=== PATIENT | male | born 1975 | race Caucasian/White ===

== ENCOUNTER 2016-09-08 14:32 | Emergency (ER) | payer MEDICAID, MEDICARE ==
[~2016-09-08] VITALS: Ht 185.4 cm; Wt 65.6 kg
[~2016-09-08 14:32] MED LIST: CLIN-89 PO; HYDR-4246 PO; IBUP-1724 PO; NO ROUTINE MEDS
--- OUTSIDE RECORDS SUMMARY | 2016-09-08 14:37 | XMS REPORT | Continuity of Care Document ---
Author Author [facility] Organization [facility] Address Unknown Phone Unavailable Support Name Relationship Address Phone GENOVEVA RUVALCABA MD Caregiver [address] [place] [phone] SARAH LONGORIA MD Caregiver [address] [place] [address] ZAK VARMA Next Of Kin [address] [place] [address] Insurance Providers Payer Name Policy Number Subscriber Name Relationship Medicare Eddie De Los Santos 18 Self Problems Medical Problems Problem Onset Date Status Bronchitis Unknown Active Pain due to dental caries Unknown Active Medications Medication Dose Route Sig Days/Qty Instructions Order Date Discontinued Date Status Albuterol 17 Gm IH NEEDED 03/08/08 01/29/11 Discontinued Tramadol Hcl 50 Mg PO DAILY 10/18/09 06/03/10 Discontinued [Testosterone Cream] 04/11/08 05/04/08 Discontinued [Propranolol] 04/11/08 10/15/09 Discontinued Cyclobenzaprine Hcl 10 Mg PO NEEDED 10/18/09 06/03/10 Discontinued Sumatriptan Succinate 50 Mg PO NEEDED 10/18/09 06/03/10 Discontinued Propranolol Hcl 80 Mg PO TWICE A DAY 06/03/10 01/29/11 Discontinued Erythromycin Base DAILY 06/03/10 08/08/10 Discontinued Tramadol Hcl 25 Mg PO DAILY 02/26/11 06/10/11 Discontinued [Napacan] PO DAILY 05/17/11 06/10/11 Discontinued Albuterol 17 Gm IH NEEDED 05/17/11 06/10/11 Discontinued Amitriptyline Hcl 25 Mg PO BEDTIME 06/10/11 10/03/11 Discontinued Indomethacin 25 Mg PO THREE TIMES A DAY 06/10/11 08/06/11 Discontinued Testosterone 1 Patch TD DAILY 08/06/11 12/02/11 Discontinued Butalb/Acetaminophen/Caffeine 1 Tab PO NEEDED 06/05/12 06/23/13 Discontinued Tramadol Hcl 50 Mg PO TWICE A DAY 10/20/12 Active Albuterol Sulfate IH NEEDED 01/11/14 Active Hydrocodone/Acetaminophen 1-2 Tab PO Every 6 Hours 30 Qty 01/11/14 Active Clindamycin HCl 1 Cap PO FOUR TIMES DAILY 10 Days TAKE WITH A FULL GLASS OF WATER TO AVOID ESOPHAGEAL 01/11/14 Active Social History Social History Problem Response Recorded Date/Time Smoking Status Current every day smoker 01/11/2014 4:27am Chewing Tobacco Status No 04/08/2013 1:37am Hx Substance Use No 01/11/2014 4:27am Hx Alcohol Use Y OCCAS 01/11/2014 4:27am Query Response Start Date Stop Date Smoking Status Current every day smoker Hospital Discharge Instructions No hospital discharge instructions. Plan of Care No plan of care. Functional Status Query Response Date Recorded Physical Hygiene Self January 11, 2014 4:27am Disabilities None January 11, 2014 4:27am Devices Used None January 11, 2014 4:27am Dressing Self January 11, 2014 4:27am Ambulation Self January 11, 2014 4:27am Diet Self January 11, 2014 4:27am Mental Status Alert Oriented January 11, 2014 4:36am Disabilities None January 11, 2014 4:27am Devices Used None January 11, 2014 4:27am Physical Hygiene Self January 11, 2014 4:27am Dressing Self January 11, 2014 4:27am Ambulation Self January 11, 2014 4:27am Diet Self January 11, 2014 4:27am Allergies, Adverse Reactions, Alerts Allergen Type Severity Reaction Status Last Updated Penicillin Allergy Mild HIVES Active 01/11/14 TESTOSTERONE CREAM Allergy Mild Active 05/16/08 Immunizations Name Given Type Hx Influenza Vaccination No Historical Hx Pneumococcal Vaccination No Historical Hx Tetanus, Diptheria, Pertussis Y 2010 Historical Hx Influenza Vaccination No Historical Hx Tetanus, Diptheria, Pertussis Y 2010 Historical Vital Signs Acute Vital Signs Vital Response Date/Time Temperature (Fahrenheit) 97.8 deg F (96.8 - 99.1) Temperature (Calculated Celsius) 36.85404 degrees C (36.0 - 37.3) Pulse Rate (adult) 69 bpm (60 - 100) Respiratory Rate 18 breaths/min (10 - 20) O2 Sat by Pulse Oximetry 96 % (90 - 100) Blood Pressure 114/78 mm Hg Blood Pressure 114/78 mm Hg Height (Feet) 6 feet Height (Inches) 1.00 inches Weight (Kilograms) 61.1 kg Body Mass Index (BMI) 17.0 Results Test Source Date Result Interp. Ref. Range Comments Activated Partial Thromboplast Time October 20, 2012 3:00am 32.6 SEC N 24- 36 Ordering r/o VTE Yes Alanine Aminotransferase (ALT/SGPT) October 20, 2012 3:00am 31 U/L N 21-72 Albumin October 20, 2012 3:00am 4.1 G/DL N 3.5-5.0 Albumin/Globulin Ratio October 20, 2012 3:00am 1.6 RATIO N 1.1-2.2 Alkaline Phosphatase October 20, 2012 3:00am 65 U/L N 38-126 Anion Gap October 20, 2012 3:00am 12 MEQ/L N 5-15 Aspartate Amino Transf (AST/SGOT) October 20, 2012 3:00am 34 U/L N 17-59 B-Type Natriuretic Peptide August 08, 2010 7:10pm < 15 PG/ML L 15-100 BUN/Creatinine Ratio October 20, 2012 3:00am 13 RATIO N 6-26 Band Neutrophils # September 16, 2008 9:15pm 0.3 T/MM3 - Band Neutrophils % September 16, 2008 9:15pm 5.0 % N 0-6 Basophils # (Auto) October 20, 2012 3:00am 0.0 T/MM3 N 0-0.2 Ordering r/o VTE Yes Basophils (%) (Auto) October 20, 2012 3:00am 0.5 % N 0-2 Ordering r/o VTE Yes Blood Urea Nitrogen October 20, 2012 3:00am 16.0 MG/DL N 9-20 Calcium Level October 20, 2012 3:00am 8.8 MG/DL N 8.4-10.2 Calculated Osmolality October 20, 2012 3:00am 272 MOSM/KG N 261-280 Carbon Dioxide Level October 20, 2012 3:00am 25 MEQ/L N 22-30 Chloride Level October 20, 2012 3:00am 104 MEQ/L N 98-107 Conjugated Bilirubin January 14, 2012 4:32pm 0.00 MG/DL N 0.00-0.30 Creatinine October 20, 2012 3:00am 1.2 MG/DL N 0.8-1.5 D-Dimer October 20, 2012 3:00am < 150 NG/ML 0-230 <224 NG/ML= PRESUMPTIVE NEGATIVE FOR PE OR DVT>224 NG/ML=ADDITIONAL EVALUATION FOR PE OR DVT RECOMMENDED Differential Total Cells Counted May 16, 2008 3:15pm 100 % - Eosinophils # (Auto) October 20, 2012 3:00am 0.1 T/MM3 N 0-0.5 Ordering r/ o VTE Yes Eosinophils # (Manual) May 16, 2008 3:15pm 0.1 T/MM3 N 0-0.5 Eosinophils % (Manual) May 16, 2008 3:15pm 2.0 % N 0-4 Eosinophils (%) (Auto) October 20, 2012 3:00am 0.8 % N 0-4 Ordering r/o VTE Yes Globulin October 20, 2012 3:00am 2.5 G/DL N 2.4-3.6 Glucose Level October 20, 2012 3:00am 95 MG/DL N 75-110 Group A Streptococcus Screen February 26, 2011 9:30am Negative - Strep culture confirmation to follow Hematocrit October 20, 2012 3:00am 39.6 % L 41-53 Ordering r/o VTE Yes Hemoglobin October 20, 2012 3:00am 14.0 GM/DL N 13.5-17.5 Ordering r/o VTE Yes Influenza Type A Antigen February 02, 2012 11:20pm Negative - Negative for Flu A protein antigen. Assay sensitivity isbetween 65-83%. A negative result does not exclude influenza virus infection. "Influenza FA" may be ordered if clinical presentation warrants confirmatory testing. Influenza Type B Antigen February 02, 2012 11:20pm Negative - Negative for Flu B protein antigen. Assay sensitivity isbetween 65-83%. A negative result does not exclude influenza virus infection. "Influenza FA" may be ordered if clinical presentation warrants confirmatory testing. Lymphocytes # (Auto) October 20, 2012 3:00am 2.0 T/MM3 N 1-4.8 Ordering r/ o VTE Yes Lymphocytes # (Manual) September 16, 2008 9:15pm 2.4 T/MM3 N 1-4.8 Lymphocytes % (Manual) September 16, 2008 9:15pm 41.0 % N 23-45 Lymphocytes (%) (Auto) October 20, 2012 3:00am 32.6 % N 23-45 Ordering r/ o VTE Yes Mean Corpuscular Hemoglobin October 20, 2012 3:00am 28.5 UUG N 26-34 Ordering r/o VTE Yes Mean Corpuscular Hemoglobin Concent October 20, 2012 3:00am 35.4 GM/DL N 31 -37 Ordering r/o VTE Yes Mean Corpuscular Volume October 20, 2012 3:00am 80.7 UM3 N 80-100 Ordering r/o VTE Yes Mean Platelet Volume October 20, 2012 3:00am 10.3 UM3 N 9.4-12.4 Ordering r/o VTE Yes Monocytes # (Auto) October 20, 2012 3:00am 0.5 T/MM3 N 0-0.8 Ordering r/o VTE Yes Monocytes # (Manual) September 16, 2008 9:15pm 0.2 T/MM3 N 0-0.8 Monocytes % (Manual) September 16, 2008 9:15pm 4.0 % N 0-9.0 Monocytes (%) (Auto) October 20, 2012 3:00am 7.7 % N 0-9.0 Ordering r/o VTE Yes Neutrophils # (Auto) October 20, 2012 3:00am 3.5 T/MM3 N 1.8-7.7 Ordering r/o VTE Yes Neutrophils # (Manual) September 16, 2008 9:15pm 2.7 T/MM3 N 1.8-7.7 Neutrophils % (Manual) September 16, 2008 9:15pm 46.0 % N 33-66 Neutrophils (%) (Auto) October 20, 2012 3:00am 58.4 % N 33-66 Ordering r/ o VTE Yes Platelet Count October 20, 2012 3:00am 133 T/MM3 N 130-400 Ordering r/o VTE Yes Potassium Level October 20, 2012 3:00am 3.7 MEQ/L N 3.6-5 Prothromb Time International Ratio October 20, 2012 3:00am 1.02 N 0.86- 1.10 THERAPUTIC RANGE=2.00-3.00 FOR ANTI-THROMBOSIS THERAPUTIC RANGE=2.50- 3.50 FOR IMPLANTED VALVE RDW Standard Deviation October 20, 2012 3:00am 38.3 FL N 36.9-50.2 Ordering r/o VTE Yes Reactive Lymphocytes September 16, 2008 9:15pm 4.0 % H 0-0 Red Blood Count October 20, 2012 3:00am 4.91 M/MM3 N 4.50-5.90 Ordering r/ o VTE Yes Sodium Level October 20, 2012 3:00am 141 MEQ/L N 134-144 Total Bilirubin October 20, 2012 3:00am 0.50 MG/DL N 0.20-1.30 Total Protein October 20, 2012 3:00am 6.6 G/DL N 6.3-8.2 Troponin I October 20, 2012 3:00am < 0.012 ng/ml 0-0.12 Unconjugated Bilirubin January 14, 2012 4:32pm 0.00 MG/DL N 0.00-1.10 Urine Bacteria May 16, 2008 3:07pm Trace - Has specimen been collected/obtained? Y Urine Bilirubin May 16, 2008 3:07pm Negative - Has specimen been collected/obtained? Y Urine Blood May 16, 2008 3:07pm Negative - Has specimen been collected/obtained? Y Urine Collection Type May 16, 2008 3:07pm Voided - Has specimen been collected/obtained? Y Urine Color May 16, 2008 3:07pm Yellow - Has specimen been collected/obtained? Y Urine Culture Indicated May 16, 2008 3:07pm Cult not set up - Has specimen been collected/obtained? Y Urine Glucose (UA) May 16, 2008 3:07pm Negative - Has specimen been collected/obtained? Y Urine Ketones May 16, 2008 3:07pm Negative - Has specimen been collected/obtained? Y Urine Leukocyte Esterase May 16, 2008 3:07pm Trace H - Has specimen been collected/obtained? Y Urine Nitrite May 16, 2008 3:07pm Negative - Has specimen been collected/obtained? Y Urine Protein May 16, 2008 3:07pm Negative - Has specimen been collected/obtained? Y Urine RBC May 16, 2008 3:07pm 0-1 /HPF - Has specimen been collected/obtained? Y Urine Specific [place] May 16, 2008 3:07pm 1.020 - Has specimen been collected/obtained? Y Urine Squamous Epithelial Cells May 16, 2008 3:07pm Few - Has specimen been collected/obtained? Y Urine Turbidity May 16, 2008 3:07pm Clear - Has specimen been collected/obtained? Y Urine Urobilinogen May 16, 2008 3:07pm Normal EU/DL - Has specimen been collected/obtained? Y Urine WBC May 16, 2008 3:07pm 1-3 /HPF - Has specimen been collected/obtained? Y Urine pH May 16, 2008 3:07pm 6.0 - Has specimen been collected/ obtained? Y White Blood Count October 20, 2012 3:00am 6.0 T/MM3 N 4.5-11.0 Ordering r/ o VTE Yes EKG January 13, 2009 8:22pm Complete - Atypical/Reactive Lymphocytes September 16, 2008 9:15pm 0.2 T/MM3 H 0-0 Glomerular Filtration Rate Calc October 20, 2012 3:00am 69 - Immature Granulocyte # (Auto) October 20, 2012 3:00am 0.00 T/MM3 N 0.00- 0.03 Ordering r/o VTE Yes Immature Granulocyte % (Auto) October 20, 2012 3:00am 0.0 % N 0.0-0.5 Ordering r/o VTE Yes WE-Cyj-N-Type Natriuretic Peptide October 20, 2012 3:00am 108 PG/ML N 0- 175 Rule in cut points: <50 years old=450; 50-75 years old=900; >75 years old=1800; When utilizing ProBNP rule-in cut points, adjustment for impaired renal function is typically not required. Group A Streptococcus Culture Throat February 26, 2011 10:25am Procedures No known history of procedures. Encounters Encounter Location Date/Time Departed Emergency Room [facility] 01/11/14 3:57am Recent Diagnosis
--- OUTSIDE RECORDS SUMMARY | 2016-09-08 14:37 | XMS REPORT | Continuity of Care Document ---
Author Author [facility] Organization [facility] Address Unknown Phone Unavailable Support Name Relationship Address Phone HENRY BLACK MD Caregiver [address] [place] [phone] GENOVEVA RUVALCABA MD Caregiver [address] [place], [place] [phone] ZAK VARMA Next Of Kin [address] [place] [id number] Insurance Providers Payer Name Policy Number Subscriber Name Relationship Medicare [id number] Eddie De Los Santos 18 Self Problems Medical Problems Problem Onset Date Status Bronchitis Unknown Active Pain due to dental caries Unknown Active Acute bronchitis Unknown Active Acute bronchitis Unknown Active Medications Medication Dose Route Sig [...] 12/02/11 Discontinued Butalb/Acetaminophen/Caffeine 1 Tab PO NEEDED 10/03/11 10/20/12 Discontinued Tramadol Hcl 50 Mg PO TWICE A DAY 10/20/12 Active Albuterol Sulfate IH NEEDED 01/11/14 Active Azithromycin 1 Tab PO DAILY 6 Qty TAKE TWO ON DAY ONE, 01/22/14 Active Prednisone 10 Mg PO DAILY 24 Qty 01/22/14 Active Social History Social History Problem Response Recorded Date/Time Smoking Status Current every day smoker 01/22/2014 4:02am When did patient START smoking? AGE 18 01/22/2014 4:02am Chewing Tobacco Status No 04/08/2013 1:37am Hx Substance Use No 01/22/2014 4:02am Hx Alcohol Use Y OCCAS 01/22/2014 4:02am Query Response Start Date Stop Date Smoking Status Current every day smoker Hospital Discharge Instructions No hospital discharge instructions. Plan of Care No plan of care. Functional Status Query Response Date Recorded Physical Hygiene Self January 22, 2014 4:02am Disabilities Hearing Visual January 22, 2014 4:02am Devices Used Glasses None January 22, 2014 4:02am Dressing Self January 22, 2014 4:02am Ambulation Self January 22, 2014 4:02am Diet Self January 22, 2014 4:02am Mental Status Alert Oriented January 22, 2014 5:10am Disabilities Hearing Visual January 22, 2014 4:02am Devices Used Glasses None January 22, 2014 4:02am Physical Hygiene Self January 22, 2014 4:02am Dressing Self January 22, 2014 4:02am Ambulation Self January 22, 2014 4:02am Diet Self January 22, 2014 4:02am Allergies, Adverse Reactions, Alerts Allergen Type Severity Reaction Status Last Updated Penicillin Allergy Mild HIVES Active 01/22/14 TESTOSTERONE CREAM Allergy Mild Active 05/16/08 Immunizations Name Given Type Hx Influenza Vaccination No Historical Hx Pneumococcal Vaccination No Historical Hx Tetanus, Diptheria, Pertussis Y 2010 Historical Hx Influenza Vaccination No Historical Hx Tetanus, Diptheria, Pertussis Y 2010 Historical Vital Signs Acute Vital Signs Vital Response Date/Time Temperature (Fahrenheit) 98.0 deg F (96.8 - 99.1) Temperature (Calculated Celsius) 36.94070 degrees C (36.0 - 37.3) Pulse Rate (adult) 102 bpm (60 - 100) Respiratory Rate 20 breaths/min (10 - 20) O2 Sat by Pulse Oximetry 94 % (90 - 100) Blood Pressure 104/58 mm Hg Height 6 ft 1 in Weight 134 lb Body Mass Index 17.0 kg/m^2 Results Test Source Date Result Interp. Ref. [...] r/o VTE Yes Influenza Type A Antigen January 22, 2014 3:55am Negative - Negative for Flu A protein antigen. Assay sensitivity is90%. Influenza Type B Antigen January 22, 2014 3:55am Negative - Negative for Flu B protein antigen. Assay sensitivity is90%. Lymphocytes # (Auto) October 20, 2012 3:00am [...] Has specimen been collected/obtained? Y Urine Specific [place] May 16, 2008 3:07pm 1.020 - Has [...] % N 0.0-0.5 Ordering r/o VTE Yes FG-Ovt-G-Type Natriuretic Peptide October 20, 2012 3:00am 108 PG/ML N 0- 175 Rule in cut points: <50 years old=450; 50-75 years old=900; >75 years old=1800; When utilizing ProBNP rule-in cut points, adjustment for impaired renal function is typically not required. Group A Streptococcus Culture Throat February 26, 2011 10:25am Procedures No known history of procedures. Encounters Encounter Location Date/Time Departed Emergency Room [facility] 01/22/14 3:11am Departed Emergency Room [facility] 01/11/14 3:57am Recent Diagnosis
--- OUTSIDE RECORDS SUMMARY | 2016-09-08 14:38 | XMS REPORT | Continuity of Care Document ---
Author Author [facility] Organization [facility] Address Unknown Phone Unavailable Allergies Active Description Code Type Severity Reaction Onset Reported/Identified Relationship to Patient Clinical Status Yes penicillin NKMA N/A N/A 08/27/2013 Yes Penicillins Penicillins Drug Allergy Unknown HIVES 02/13/2016 Medications Problems Procedures Results Test Result Range CBC W/DIFF - 09/27/15 11:25 EOSINOPHIL # 0.1 k/cumm 0.1-0.5 EOSINOPHIL % 1 % 2-4 GRANULOCYTE # 4.1 k/cumm 2.0-9.0 GRANULOCYTE % 62 % 50-75 LYMPHOCYTE # 1.9 k/cumm 1.0-4.0 LYMPHOCYTE % 30 % 20-30 MEAN CELL HGB 29.1 pg 27.0-33.0 MEAN CELL HGB CONCENTRATION 36.2 g/dL 32.0-37.0 MEAN CELL VOLUME 80.3 fl 80.0-100.0 MONOCYTE # 0.5 k/cumm 0.1-1.0 MONOCYTE % 7 % 4-6 RED BLOOD CELL 5.33 m/cumm 4.00-6.00 RED CELL DISTRIBUTION WIDTH 14.1 % 11.0- 15.6 WHITE BLOOD CELL 6.5 k/cumm 5.0-10.0 HEMOGLOBIN 15.5 gm/dL 14.0-18.0 HEMATOCRIT 42.8 % 40.0-54.0 PLATELET COUNT 203 k/cumm 150-400 METABOLIC PANEL, [facility] - 09/27/15 11:25 POTASSIUM 4.2 mmol/L 3.5-5.3 EST GFR (MDRD) > 60 mL/min > 59 ANION GAP 10 mmol/L 5-15 EST CrCl (CG) > 60 mL/min > 59 GLUCOSE 98 mg/dL 70-99 CALCIUM 9.6 mg/dL 8.5-10.1 BLOOD UREA NITROGEN 8 mg/dL 7-20 CREATININE 1.2 mg/dL 0.7-1.3 SODIUM 138 mmol/L 135-148 CHLORIDE 101 mmol/L 98-110 AST/SGOT 21 Units/L 10-37 ALT/SGPT 18 Units/L < 66 CARBON DIOXIDE 27 mmol/L 21-32 TOTAL PROTEIN 8.0 gm/dL 6.4-8.2 ALBUMIN 3.9 gm/dL 3.4-5.0 BILI TOTAL 0.5 mg/dL 0.0-1.0 ALKALINE PHOSPHATASE TOTAL 84 IU/L 45- 117 CBC W/DIFF - 10/01/15 17:19 GRANULOCYTE # 4.1 k/cumm 2.0-9.0 GRANULOCYTE % 68 % 50-75 LYMPHOCYTE # 1.5 k/cumm 1.0-4.0 LYMPHOCYTE % 24 % 20-30 MEAN CELL HGB 28.8 pg 27.0-33.0 MEAN CELL HGB CONCENTRATION 36.2 g/dL 32.0-37.0 MEAN CELL VOLUME 79.6 fl 80.0-100.0 MONOCYTE # 0.4 k/cumm 0.1-1.0 MONOCYTE % 7 % 4-6 RED BLOOD CELL 4.75 m/cumm 4.00-6.00 RED CELL DISTRIBUTION WIDTH 13.4 % 11.0- 15.6 WHITE BLOOD CELL 6.1 k/cumm 5.0-10.0 HEMOGLOBIN 13.7 gm/dL 14.0-18.0 HEMATOCRIT 37.8 % 40.0-54.0 PLATELET COUNT 189 k/cumm 150-400 HEPATIC FUNCTION PANEL - 10/01/15 17:19 BILI UNCONJUGATED 0.7 mg/dL 0.0-0.7 AST/SGOT 17 Units/L 10-37 ALT/SGPT 15 Units/L < 66 TOTAL PROTEIN 7.2 gm/dL 6.4-8.2 ALBUMIN 3.8 gm/dL 3.4-5.0 BILI TOTAL 0.8 mg/dL 0.0-1.0 ALKALINE PHOSPHATASE TOTAL 75 IU/L 45- 117 BILI CONJUGATED 0.1 mg/dL 0.0-0.3 LIPASE - 10/01/15 17:19 LIPASE 76 Units/L 73-393 CHEM/HEM PROFILE-BEDSIDE - 10/01/15 17:21 POTASSIUM 3.3 mmol/L 3.5-5.3 METHOD Bedside ANION GAP 20 mmol/L 10-20 METHOD Bedside GLUCOSE 102 mg/dL 70-99 BLOOD UREA NITROGEN 9 mg/dL 7-20 CREATININE 1.1 mg/dL 0.7-1.3 HEMOGLOBIN 12.9 gm/dL 14.0-18.0 HEMATOCRIT 38.0 % 40.0-54.0 SODIUM 135 mmol/L 135-148 CHLORIDE 99 mmol/L 98-110 CARBON DIOXIDE 20 mmol/L 21-32 CALCIUM IONIZED 4.5 mg/dL 4.5-5.3 TROPONIN I BEDSIDE - 10/01/15 17:40 METHOD Bedside TROPONIN I < 0.04 ng/mL < 0.11 CBC W/DIFF - 02/13/16 23:15 EOSINOPHIL # 0.1 k/cumm 0.1-0.5 EOSINOPHIL % 1 % 2-4 GRANULOCYTE # 5.9 k/cumm 2.0-9.0 GRANULOCYTE % 65 % 50-75 LYMPHOCYTE # 2.4 k/cumm 1.0-4.0 LYMPHOCYTE % 27 % 20-30 MEAN CELL HGB 28.6 pg 27.0-33.0 MEAN CELL HGB CONCENTRATION 35.0 g/dL 32.0-37.0 MEAN CELL VOLUME 81.7 fl 80.0-100.0 MONOCYTE # 0.6 k/cumm 0.1-1.0 MONOCYTE % 7 % 4-6 RED BLOOD CELL 5.14 m/cumm 4.00-6.00 RED CELL DISTRIBUTION WIDTH 14.0 % 11.0- 15.6 WHITE BLOOD CELL 9.0 k/cumm 5.0-10.0 HEMOGLOBIN 14.7 gm/dL 14.0-18.0 HEMATOCRIT 42.0 % 40.0-54.0 PLATELET COUNT 147 k/cumm 150-400 METABOLIC PANEL, [facility] - 02/13/16 23:15 POTASSIUM 4.3 mmol/L 3.5-5.3 EST GFR (MDRD) 56 mL/min > 59 ANION GAP 10 mmol/L 5-15 EST CrCl (CG) 59 mL/min > 59 GLUCOSE 97 mg/dL 70-99 CALCIUM 8.8 mg/dL 8.5-10.1 BLOOD UREA NITROGEN 15 mg/dL 7-20 CREATININE 1.4 mg/dL 0.7-1.3 SODIUM 140 mmol/L 135-148 CHLORIDE 103 mmol/L 98-110 AST/SGOT 18 Units/L 10-37 ALT/SGPT 16 Units/L < 66 CARBON DIOXIDE 27 mmol/L 21-32 TOTAL PROTEIN 7.4 gm/dL 6.4-8.2 ALBUMIN 4.0 gm/dL 3.4-5.0 BILI TOTAL 0.4 mg/dL 0.0-1.0 ALKALINE PHOSPHATASE TOTAL 72 IU/L 45- 117 TROPONIN I - 02/13/16 23:15 TROPONIN I < 0.02 ng/mL < 0.07 Encounters ACCT No. Visit Date/Time Discharge Status Pt. Type Provider Facility Loc./Unit Complaint [id number] 05/28/2013 13:17:00 05/28/2013 23 :59:59 CLS Outpatient [id number] 03/25/2013 10:53:00 03/25/2013 23 :59:59 CLS Outpatient
--- OUTSIDE RECORDS SUMMARY | 2016-09-08 14:38 | XMS REPORT | Referral Summary ---
Author Author [facility], [facility] Organization [facility] Address Unknown Phone Unavailable Care Team Providers Care Ethylbenzene Cracking Supervisor Name Role Phone Satinder Crawford Primary Care Physician [phone] Encounter Date(s): 06/12/16 - 06/12/16 [facility] [address] [place] [phone] [place] Discharge Diagnosis: Tobacco use Discharge Diagnosis: Runny nose Discharge Diagnosis: Dental abscess Discharge Disposition: 01-Home or Self Care Attending Physician: Marco Antonio Felix PA-C Admitting Physician: Marco Antonio Felix PA-C Vital Signs Most recent to 1 oldest [Reference Range]: Temperature Tympanic 36 degC [36.6-38.1 degC] *LOW* (06/12/16 2:17 PM) Peripheral Pulse 79 bpm Rate [60-100 bpm] (06/12/16 2:17 PM) Blood Pressure 106/72 mmHg [90-140/60-90 mmHg] (06/12/16 2:17 PM) SpO2 98 % (06/12/16 2:17 PM) Problem List Condition Effective Dates Status Health Status Informant Acne(Confirmed) Active Allergic Resolved condition(Confirmed) Allergic rhinitis Active (disorder)(Confirmed ) Anxiety(Confirmed) Resolved Anxiety state Active (finding)(Confirmed) Arthritis(Confirmed) Active Asthma(Confirmed) Resolved Asthma without Active status asthmaticus (disorder)(Confirmed ) 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 ) Depression(Confirmed Resolved ) Other testicular Active hypofunction(Confirm ed) Fx triquetrum 08/07/08 Active Lt(Confirmed) Gamekeeper's Resolved thumb(Confirmed) Gynecomastia(Confirm Active ed) Hearing loss Active (disorder)(Confirmed )1 Kidney Active disease(Confirmed)2 Kidney stone Active (disorder)(Confirmed ) Loss of Resolved hearing(Confirmed) Migraine Active headache(Confirmed) 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) Chicken Active pox(Confirmed) 1deaf left ear 2Only 1 kidney Allergies, Adverse Reactions, Alerts Substance Reaction Severity Status penicillin Active Medications Keflex 500 mg oral capsule 500 mg 1 caps, Oral, QID, X 10 days, # 40 caps, 0 Refill(s), Pharmacy: [facility] #[id number], 1 caps Oral QID,x10 days Start Date: 06/12/16 Stop Date: 06/22/16 Status: Ordered Results No data available for this section Immunizations Given and Recorded Vaccine Date Status Refusal Reason tetanus/diphtheria/pertussis, acel(Tdap) 05/04/10 Recorded tetanus-diphth toxoids (Td) adult/adol 06/13/00 Given tetanus-diphth toxoids (Td) adult/adol 10/02/97 Given Procedures Procedure Date Related Diagnosis Body Site Breast biopsy and related procedures1 10/18/09 Arthroscopy of wrist2 Intestinal3 Nasal septum repair with cyst excision Orchiectomy, partial [id number] 2left wrist 3intestinal surgery Social History Social History Type Response Smoking Status Current every day smoker; Type: Cigarettes; Tobacco use per day: Less than Pack Assessment and Plan Extracted from: Title: right upper tooth Author: Marco Antonio Felix PA-C Date: 06/12/16 Assessment/Plan Tobacco use Recommended smoking cessation. Patient congratulated onsmokingdecreased to 5 cigarettes/day. Dental abscess Patient was started on Keflex 500 mg 1 tablet 4 times a day 10 days; he notes he had a rash with penicillinwhen he was an . We did discuss a slight chance of cross reactivity between the cephalosporin and penicillin. If patient developsthroat swelling,facial swellingand/or hives, discontinue the antibiotic in follow-upfor urgent assessment. Tylenol/Ibuprofen as needed for fever or pain. Recommend supportive care. Rest. Practice good hand hygiene. Increase fluids. FU with PCP if not improving, worsening symptoms, or as needed. Questions were answered. Patient verbalized understanding. Patient left in stable condition. Runny nose And no significant congestion was noted, recommended trying Claritinover -the-counter.No improvement follow-up with primary care.
[2016-09-08 14:42] VITALS: Ht 185.4 cm; Wt 65.6 kg
--- OUTSIDE RECORDS SUMMARY | 2016-09-08 14:48 | XMS REPORT | Continuity of Care Document ---
Author Author [facility] Organization [facility] Address Unknown Phone Unavailable Support Name Relationship Address Phone GENOVEVA RUVALCABA MD Caregiver [address] [place] [phone] SARAH LONGORIA MD Caregiver [address] [place] [address] ZAK VARMA Next Of Kin [address] [place] [address] Insurance Providers Payer Name Policy [...] F (96.8 - 99.1) Temperature (Calculated Celsius) 36.53751 degrees C (36.0 - 37.3) Pulse Rate [...] Has specimen been collected/obtained? Y Urine Specific [place] May 16, 2008 3:07pm 1.020 - Has [...] % N 0.0-0.5 Ordering r/o VTE Yes YU-Vue-Y-Type Natriuretic Peptide October 20, 2012 3:00am 108 [...] Date/Time Departed Emergency Room [facility] 01/11/14 3:57am Recent Diagnosis
--- OUTSIDE RECORDS SUMMARY | 2016-09-08 14:48 | XMS REPORT | Continuity of Care Document ---
Author Author [facility] Organization [facility] Address Unknown Phone Unavailable Support Name Relationship Address Phone HENRY BLACK MD Caregiver [address] [place] [phone] GENOVEVA RUVALCABA MD Caregiver [address] [place], [place] [phone] ZAK VARMA Next Of Kin [address] [id number] Insurance Providers Payer Name Policy Number Subscriber Name Relationship Medicare [id number] Eddie De Los Santos 18 Self Problems [...] F (96.8 - 99.1) Temperature (Calculated Celsius) 36.13510 degrees C (36.0 - 37.3) Pulse Rate [...] Has specimen been collected/obtained? Y Urine Specific [place] May 16, 2008 3:07pm 1.020 - Has [...] % N 0.0-0.5 Ordering r/o VTE Yes FZ-Etb-S-Type Natriuretic Peptide October 20, 2012 3:00am 108 PG/ML N 0- 175 Rule in cut points: <50 years old=450; 50-75 years old=900; >75 years old=1800; When utilizing ProBNP rule-in cut points, adjustment for impaired renal function is typically not required. Group A Streptococcus Culture Throat February 26, 2011 10:25am Procedures No known history of procedures. Encounters Encounter Location Date/Time Departed Emergency Room [facility] 01/22/14 3:11am Departed Emergency Room [facility] 01/11/14 3:57am Recent Diagnosis
--- OUTSIDE RECORDS SUMMARY | 2016-09-08 14:49 | XMS REPORT | Continuity of Care Document ---
Author Author [facility] Organization [facility] Address Unknown Phone Unavailable Allergies Active Description [...] PLATELET COUNT 147 k/cumm 150-400 METABOLIC PANEL, [facility] - 02/13/16 23:15 POTASSIUM 4.3 mmol/L 3.5-5.3 [...] Status Pt. Type Provider Facility Loc./Unit Complaint [id number] 05/28/2013 13:17:00 05/28/2013 23 :59:59 CLS Outpatient [id number] 03/25/2013 10:53:00 03/25/2013 23 :59:59 CLS Outpatient
--- NOTE | 2016-09-08 14:51 | ERPDOC ---
Departure Disposition Decision Date: September 08, 2016 Disposition Decision Time: 15:26 Disposition: 01 DISCHARGED HOME, SELF-CARE Impression Impression Impression: Primary Impression: Headache Severity: Mild Condition: Stable Seen By: Mid-level only Referrals: GENOVEVA RUVALCABA MD (Family) 3 Days Patient Instructions: Acute Headache (ED) Problems/Meds/Labs Reviewed?: Yes Medications reviewed and manag: Yes Additional Instructions: RECOMMEND GOING HOME AND RESTING FOR THE REST OF THE DAY. Follow up care ordered?: Yes Mental Status: Alert, Oriented HPI - Headache General Chief Complaint: Headache Stated Complaint: GAMBOA,NECK/BACK/RIB PAIN Time Seen by Provider: 14:43 Source: patient, family Exam Limitations: no limitations HPI - Headache Initial Comments Patient has reported history of migraine headaches and also costochondritis. Patient presents for a headache that started last evening, similar to prior migraines. States has only been taking ibuprofen at home without relief. Patient also complains of "rib pain" on his left side but states that his primary concern is his headache. Patient has nausea but no vomiting. No neurological deficit. Occurred At: home Onset: Gradual Duration: 12-24 hrs Severity/Quality: moderate, severe Location: frontal, parietal Prior Headaches/Recent Trauma: occasional headaches Modifying Factors: No: exposure to light, movement Associated Symptoms: nausea/vomiting, other (muscle tension ), DENIES: fever/ chills, loss of consciousness, seizures, stiff neck Hx of Similar Symptoms: Yes Allergies: Coded Allergies: Penicillins (Verified Allergy, Mild, HIVES, 09/08/16) Uncoded Allergies: TESTOSTERONE CREAM (Allergy, Mild, 05/16/08) Past History Past Medical History ENMT: dental problems Respiratory: asthma Neurological: headaches, migraines Psychological: anxiety, bipolar Surgical History General: other Reproductive/: other Family History Family PMH: FOUND: [place], diabetes, hypertension Vaccines Hx Influenza Vaccination: No Hx Pneumococcal Vaccination: No Hx Tetanus, Diptheria, Pertuss: Yes (2010) Social History Substance Use Type: does not use Alcohol Intake: none Review of Systems Constitutional Constitutional: see HPI, DENIES: chills, dizziness, fever, weakness Eyes General: DENIES: burning, itching, pain Lids/Accessories: DENIES: erythema, swelling Vision: DENIES: aura, blurring, double vision ENMT Ears: DENIES: erythema, pain Hearing: DENIES: tinnitus Balance: DENIES: vertigo Sinuses: DENIES: rhinorrhea Nose: DENIES: pain Mouth/Throat: DENIES: painful swallowing, scratchy throat, sore throat, sores Teeth: other (poor dental health; several missing teeth ) Cardiovascular Cardiac: DENIES: chest pain, dyspnea on exertion Rhythm/Rate: DENIES: irregular beat, palpitations, tachycardia Pulmonary Respiratory: DENIES: cough, pleuritic chest pain GI Upper Abdomen: DENIES: nausea, pain Lower Abdomen: DENIES: diarrhea, pain General: DENIES: dysuria, frequency, urgency Musculoskeletal General: DENIES: pain Integumentary Skin: see HPI Neurological General: headache, see HPI Psychiatric Psychiatric: anxiety Hematologic/Lymphatic Hematologic/Lymphatic: DENIES: anemia, easy bruising Allergic/Immunological Allergic/Immunoligical: DENIES: frequent infections, hives, sneezing All other Systems All Other Systems: Reviewed and Negative Physical Exam General General Nourishment: well nourished, well developed, appears stated age, no acute distress, adult General Body Habitus: well groomed Vitals and Pain First Documented Vital Signs Date Time Temp Pulse Resp B/P Pulse Ox O2 Delivery O2 Flow Rate FiO2 09/08/16 14:42 98.0 73 11 122/83 97 Room Air Weight: Kilograms: 65.600 Height (feet): 6 Height (inches): 1.00 Triage Pain Scale: Normal Exams: Head: Normocephalic w/o trauma Eyes: Pupils are PERRLA w/ EOMI, No scleral icterus, irritation, or foreign bodies noted ENMT: No facial trauma, nasal exudates, pharyngeal erythema, or exudates are noted Neck: Full range of motion, without adenopathy, JVD, bruits or thyromegaly Chest/Resp: Clear all tillman, with good airflow, and symmetry bilaterally CV: Regular rate and rhythm, without murmur or gallop, Pulses 2+ all extremities, capillary refill, <2 seconds all ext., no pedal edema noted Abdomen: Bowel sounds positive, soft, non-tender, non-distended, no hepatosplenomegaly, masses or bruits noted Lymphatic: No lymphadenopathy, or lymphedema noted Musculoskeletal: No tenderness, or deformity noted, good range of motion, all extremities Integumentary: No rashes, hives, or bruising noted, hair and nails, without abnormality Neurologic: Patient is alert, and oriented, cranial nerves, motor/sensory/ cerebellar, exams w/o gross deficits, to observation Psychiatric: Patient exhibits, appropriate attention, emotion and affect Differential Diagnoses Considering: Carbon Monoxide Toxicity, Cerebral Hemorrhage, CVA - Thrombotic, CVA - Hemorrhagic, Headache, Headache - Migraine, Headache - Tension/Muscle, Meningitis, Sinusitis - Sphenoid, Sinusitis - Maxillary, Sinusitis - Frontal, Viral Syndrome Progress Results/Orders Orders Procedure Category Date Status Time Ketorolac (Toradol) PHA 09/08/16 Complete 15:00 Orphenadrine (Norflex) PHA 09/08/16 Complete 15:00 Ondansetron Odt PHA 09/08/16 Complete (Zofran Odt) 15:00 Prochlorperazine PHA 09/08/16 Complete (Compazine) 15:30 Medications Current ED Medications Ketorolac Tromethamine (Toradol) 60 mg O ONCE IM Last administered on 14:59; Start 09/08/16 at 15:00; Stop 09/08/16 at 15:01; Status DC Orphenadrine Citrate (Norflex) 60 mg O ONCE IM Last administered on 09/08/16 14:59; Start 09/08/16 at 15:00; Stop 09/08/16 at 15:01; Status DC Ondansetron HCl (Zofran Odt) 4 mg O ONCE PO Last administered on 09/08/16 14: 57; Start 09/08/16 at 15:00; Stop 09/08/16 at 15:01; Status DC Prochlorperazine Edisylate (Compazine) 10 mg O ONCE IM Last administered on 15:31; Start 09/08/16 at 15:30; Stop 09/08/16 at 15:30; Status DC Progress Progress 1515: Patient states has some relief from his head ache; nausea is better. "Rib pain " is better. Will give compazine for addtional migraine treatment and patient states feels he can go home and rest. Remains without neurological deficit SILVER PARMAR APRN September 08, 2016 14:51
[2016-09-08] MEDS ORDERED: KETOROLAC 60mg/2ml INJECTION IM ONE (15:00)
[2016-09-08] MEDS ORDERED: ONDANSETRON ODT 4 MG TAB PO ONE (15:00)
[2016-09-08] MEDS ORDERED: ORPHENADRINE 60mg/2ml INJECTION IM ONE (15:00)
[2016-09-08] MEDS ORDERED: HYDR50CA5 PO (15:02)
[2016-09-08] MEDS ORDERED: BUSP15TA3 PO (15:02)
[2016-09-08] MEDS ORDERED: PROCHLORPERAZINE 10mg/2ml INJECTION IM ONE (15:30)
[2016-09-08 15:38] VITALS: BP 94/55; PULSE 58; RESP 11; TEMP 98; O2SAT 97
== END 2016-09-08 15:38 | disposition home or self-care (01) ==
LOC: ED 14:32
DX: R51 Headache (principal); R07.81 Pleurodynia; R11.0 Nausea
CPT/HCPCS: 96372; 99283; J0780; J1885; J2360

== ENCOUNTER 2016-09-13 12:23 | Emergency (ER) | payer MEDICAID, MEDICARE ==
[~2016-09-13] VITALS: Ht 185.4 cm; Wt 65.5 kg
[~2016-09-13 12:23] MED LIST changes: +BUSP15TA3 PO; -CLIN-89 PO; -HYDR-4246 PO; +HYDR50CA5 PO; -NO ROUTINE MEDS
--- OUTSIDE RECORDS SUMMARY | 2016-09-13 12:27 | XMS REPORT | Continuity of Care Document ---
Author Author [facility] Organization [facility] Address Unknown Phone Unavailable Support Name Relationship Address Phone HENRY BLACK MD Caregiver [address] [phone] GENOVEVA RUVALCABA MD Caregiver [address] [place], [place] [phone] ZAK VARMA Next Of Kin [address] [id number] Insurance Providers Payer Name Policy Number Subscriber Name Relationship Medicare [id number] Eddie De Los Santos 18 Self Problems [...] F (96.8 - 99.1) Temperature (Calculated Celsius) 36.12770 degrees C (36.0 - 37.3) Pulse Rate [...] Has specimen been collected/obtained? Y Urine Specific [place] May 16, 2008 3:07pm 1.020 - Has [...] % N 0.0-0.5 Ordering r/o VTE Yes JT-Qum-U-Type Natriuretic Peptide October 20, 2012 3:00am 108 PG/ML N 0- 175 Rule in cut points: <50 years old=450; 50-75 years old=900; >75 years old=1800; When utilizing ProBNP rule-in cut points, adjustment for impaired renal function is typically not required. Group A Streptococcus Culture Throat February 26, 2011 10:25am Procedures No known history of procedures. Encounters Encounter Location Date/Time Departed Emergency Room [facility] 01/22/14 3:11am Departed Emergency Room [facility] 01/11/14 3:57am Recent Diagnosis
--- OUTSIDE RECORDS SUMMARY | 2016-09-13 12:27 | XMS REPORT | Continuity of Care Document ---
Author Author [facility] Organization [facility] Address Unknown Phone Unavailable Support Name Relationship Address Phone GENOVEVA RUVALCABA MD Caregiver [address] [phone] SARAH LONGORIA MD Caregiver [address] [address] ZAK VARMA Next Of Kin [address] [place] [address] Insurance Providers Payer Name Policy [...] F (96.8 - 99.1) Temperature (Calculated Celsius) 36.48014 degrees C (36.0 - 37.3) Pulse Rate [...] Has specimen been collected/obtained? Y Urine Specific [place] May 16, 2008 3:07pm 1.020 - Has [...] % N 0.0-0.5 Ordering r/o VTE Yes QY-Dlz-G-Type Natriuretic Peptide October 20, 2012 3:00am 108 PG/ML N 0- 175 Rule in cut points: <50 years old=450; 50-75 years old=900; >75 years old=1800; When utilizing ProBNP rule-in cut points, adjustment for impaired renal function is typically not required. Group A Streptococcus Culture Throat February 26, 2011 10:25am Procedures No known history of procedures. Encounters Encounter Location Date/Time Departed Emergency Room [facility] 01/11/14 3:57am Recent Diagnosis
--- OUTSIDE RECORDS SUMMARY | 2016-09-13 12:29 | XMS REPORT | Continuity of Care Document ---
Author Author [facility] Organization [facility] Address Unknown Phone Unavailable Allergies Active [...] PLATELET COUNT 147 k/cumm 150-400 METABOLIC PANEL, [facility] - 02/13/16 23:15 POTASSIUM 4.3 [...] Status Pt. Type Provider Facility Loc./Unit Complaint [id number] 05/28/2013 13:17:00 05/28/2013 23 :59:59 CLS Outpatient [id number] 03/25/2013 10:53:00 03/25/2013 23 :59:59 CLS Outpatient
--- OUTSIDE RECORDS SUMMARY | 2016-09-13 12:29 | XMS REPORT | Continuity of Care Document ---
Author Author [facility] Organization [facility] Address Unknown Phone Unavailable Support Name Relationship Address Phone AUGUSTAYESHA DO Caregiver [address] [place] [address] Unavailable GENOVEVA RUVALCABA MD Caregiver [address] [place] [address] Unavailable ZAK VARMA Next Of Kin [address] [place] [address] Insurance Providers Guarantor Eddie De Los Santos Address [address] [place] [address] Email DENIED 16 Payer [facility] Policy Number [id number] Subscriber's Name Eddie De Los Santos Relationship 18 Self Effective Date 16 Expiration Date 16 Payer Medicare Part A Only Policy Number [id number] Subscriber's Name Eddie De Los Santos Relationship 18 Self Chief Complaint and Reason for Visit Chief Complaint Headache Reason for Visit Headache Problems Active Problems Medical Problem Onset Date Status Acute bronchitis Unknown Acute Acute bronchitis Unknown Acute Bronchitis Unknown Acute Headache Unknown Acute Past Problems Medical Problem Onset Date Atypical chest pain Unknown Atypical chest pain Unknown Atypical migraine Unknown Costochondritis Unknown Migraine Unknown Pain due to dental caries Unknown Medications Current Home Medications Medication Dose Units Route Directions Days Qty Instructions Start Date Buspirone Hcl 15 Mg Tablet 7.5 Mg Oral Four Times Daily 09/08/16 Hydroxyzine Pamoate 50 Mg Capsule 50 Mg Oral Four Times Daily 04/15 Ibuprofen 200 Mg Tablet 200 Mg Oral Every 4 Hours as needed for Pain 06/27/16 Past Home Medications Medication Directions Ordered Status Albuterol (Ventolin) 17 Gm Aerosol, 17 Gm Inhalation As Needed 05/17/11 Discontinued Albuterol 17 Gm Aer.refill, 17 Gm Inhalation As Needed 03/08/08 Discontinued Amitriptyline Hcl 25 Mg Tablet, 25 Mg Oral Bedtime 06/10/11 Discontinued Butalb/Acetaminophen/Caffeine (Fioricet Tablet) 1 Tab Tablet, 1 Tab Oral As Needed 10/03/11 Discontinued Cyclobenzaprine Hcl (Flexeril) 10 Mg Tablet, 10 Mg Oral As Needed 10/18/09 Discontinued Erythromycin Base (Emmanuel-Tab) 500 Mg Tablet.dr, Daily 06/03/10 Discontinued Indomethacin 25 Mg Capsule, 25 Mg Oral Three Times A Day 06/10/11 Discontinued Napacan , Oral Daily 05/17/11 Discontinued Propranolol , 04/11/08 Discontinued Propranolol Hcl (Inderal La) 80 Mg Cap.sa.24h, 80 Mg Oral Twice A Day Discontinued Sumatriptan Succinate (Imitrex) 50 Mg Tablet, 50 Mg Oral As Needed 10/18/09 Discontinued Testosterone (Androderm) 1 Patch .24 H Patch.td24, 1 Patch Transderm Daily Discontinued Testosterone Cream , 04/11/08 Discontinued Tramadol Hcl 50 Mg Tablet, 25 Mg Oral Daily 02/26/11 Discontinued Tramadol Hcl 50 Mg Tablet, 50 Mg Oral Daily 10/18/09 Discontinued Social History Social History Problem Response Recorded Date/Time Onset Date Status Chewing Tobacco Status No 04/08/2013 1:37am Not Applicable Not Applicable Hx Substance Use No 09/08/2016 2:46pm Not Applicable Not Applicable Hx Alcohol Use No 09/08/2016 2:46pm Not Applicable Not Applicable Tobacco Usage smoke 01/11/2014 5:11am Not Applicable Not Applicable Query Response Start Date Stop Date Smoking Status Current every day smoker Hospital Discharge Instructions No hospital discharge instructions. Plan of Care Discharge Date 09/08/16 3:38pm Disposition 01 DISCHARGED HOME, SELF-CARE Condition at Discharge Stable Instructions/Education Provided Acute Headache (ED) Prescriptions See Medication Section Referrals GENOVEVA RUVALCABA MD Order Date: 3 Days Address: [address] [place] [phone] Note: Additional Instructions/Education RECOMMEND GOING HOME AND RESTING FOR THE REST OF THE DAY. Functional Status No functional status results. Allergies, Adverse Reactions, Alerts Allergen Type Severity Reaction Status Last Updated Penicillin Allergy Mild HIVES Active 09/08/16 TESTOSTERONE CREAM Allergy Mild Active 05/16/08 Immunizations Query Response on File Recorded Date/Time Hx Influenza Vaccination No 01/22/14 4:02am Hx Pneumococcal Vaccination No 01/22/14 4:02am Hx Tetanus, Diptheria, Pertussis Y 201001/22/14 4:02am Hx Influenza Vaccination No 01/22/14 4:02am Hx Tetanus, Diptheria, Pertussis Y 201001/22/14 4:02am Influenza Vaccine Hx NO 09/08/16 2:46pm Vital Signs Acute Vital Signs Vital Response Date/Time Temperature (Fahrenheit) 98.0 deg F (96.8 - 99.1) 09/08/2016 3:38pm Temperature (Calculated Celsius) 36.62883 degrees C (36.0 - 37.3) 09/08/2016 3:38pm Pulse Rate (adult) 58 bpm (60 - 100) 09/08/2016 3:38pm Respiratory Rate 11 breaths/min (10 - 20) 09/08/2016 3:38pm O2 Sat by Pulse Oximetry 97 % (90 - 100) 09/08/2016 3:38pm Blood Pressure 94/55 mm Hg 09/08/2016 3:38pm Height (Feet) 6 feet 09/08/2016 2:42pm Height (Inches) 1.00 inches 09/08/2016 2:42pm Weight (Kilograms) 65.600 kg 09/08/2016 2:42pm Body Mass Index (BMI) 19.0 09/08/2016 2:42pm Results Laboratory Results Test Name Result Units Flags Reference Collection Date/Time Result Date/ Time Comments White Blood Count 6.6 T/MM3 4.5-11.0 06/22/2016 10:30pm 06/22/2016 10: 35pm Red Blood Count 5.00 M/MM3 4.50-5.90 06/22/2016 10:30pm 06/22/2016 10: 35pm Hemoglobin 14.7 GM/DL 13.5-17.5 06/22/2016 10:30pm 06/22/2016 10:35pm Hematocrit 41.7 % 41-53 06/22/2016 10:30pm 06/22/2016 10:35pm Mean Corpuscular Volume 83.4 UM3 80-100 06/22/2016 10:30pm 06/22/2016 10:35pm Mean Corpuscular Hemoglobin 29.4 UUG 26-34 06/22/2016 10:30pm 2016 10:35pm Mean Corpuscular Hemoglobin Concent 35.3 GM/DL 31-37 06/22/2016 10:30pm 06/22/2016 10:35pm RDW Standard Deviation 41.7 FL 36.9-50.2 06/22/2016 10:30pm 06/22/2016 10:35pm Platelet Count 145 T/MM3 130-400 06/22/2016 10:30pm 06/22/2016 10:35pm Mean Platelet Volume 10.4 UM3 9.4-12.4 06/22/2016 10:30pm 06/22/2016 10 :35pm Neutrophils (%) (Auto) 57.2 % 33-66 06/22/2016 10:30pm 06/22/2016 10: 35pm Lymphocytes (%) (Auto) 33.4 % 23-45 06/22/2016 10:30pm 06/22/2016 10: 35pm Monocytes (%) (Auto) 7.6 % 0-9.0 06/22/2016 10:30pm 06/22/2016 10:35pm Eosinophils (%) (Auto) 1.4 % 0-4 06/22/2016 10:30pm 06/22/2016 10:35pm Basophils (%) (Auto) 0.2 % 0-2 06/22/2016 10:30pm 06/22/2016 10:35pm Immature Granulocyte % (Auto) 0.2 % 0.0-0.5 06/22/2016 10:30pm 2016 10:35pm Absolute Neutrophils (auto) 3.8 T/MM3 1.8-7.7 06/22/2016 10:30pm 2016 10:35pm Absolute Lymphocytes (auto) 2.2 T/MM3 1-4.8 06/22/2016 10:30pm 2016 10:35pm Absolute Monocytes (auto) 0.5 T/MM3 0-0.8 06/22/2016 10:30pm 2016 10:35pm Absolute Eosinophils (auto) 0.1 T/MM3 0-0.5 06/22/2016 10:30pm 2016 10:35pm Absolute Basophils (auto) 0.0 T/MM3 0-0.2 06/22/2016 10:30pm 2016 10:35pm Absolute Immature Granulocyte (auto 0.01 T/MM3 0.00-0.03 06/22/2016 10: 30pm 06/22/2016 10:35pm D-Dimer < 150 NG/ML 0-230 06/22/2016 10:30pm 06/22/2016 11:14pm <230 NG/ML D-DU=PRESUMPTIVE NEGATIVE FOR PE OR DVT >230 NG/ML D-DU=ADDITIONAL EVAL FOR PE OR DVT RECOMMENDED Icterus Index < 2 0-7 06/22/2016 10:30pm 06/22/2016 10:45pm Chemistry Specimen Hemolysis < 15 0-25 06/22/2016 10:3006/22/2016 10:45pm 0-25: Specimen Exhibited No Hemolysis. Turbidity < 20 0-20 06/22/2016 10:30pm 06/22/2016 10:45pm Sodium Level 144 MEQ/L 134-144 06/22/2016 10:30pm 06/22/2016 10:45pm Potassium Level 4.0 MEQ/L 3.6-5 06/22/2016 10:30pm 06/22/2016 10:45pm Chloride Level 106 MEQ/L 98-107 06/22/2016 10:30pm 06/22/2016 10:45pm Carbon Dioxide Level 27 MEQ/L -06/22/2016 10:3006/22/2016 10: 45pm Anion Gap 11 MEQ/L 5-15 06/22/2016 10:30pm 06/22/2016 10:45pm Blood Urea Nitrogen 14.0 MG/DL 9-06/22/2016 10:3006/22/2016 10: 45pm Creatinine 1.1 MG/DL 0.8-1.5 06/22/2016 10:3006/22/2016 10:45pm BUN/Creatinine Ratio 13 RATIO 6-26 06/22/2016 10:3006/22/2016 10: 45pm Glomerular Filtration Rate Calc 74 06/22/2016 10:3006/22/2016 10 :45pm Glucose Level 88 MG/DL 75-110 06/22/2016 10:3006/22/2016 10:45pm Calculated Osmolality 277 MOSM/KG 261-280 06/22/2016 10:302016 10:45pm Calcium Level 9.6 MG/DL 8.4-10.2 06/22/2016 10:3006/22/2016 10:45pm Total Bilirubin 0.50 MG/DL 0.20-1.30 06/22/2016 10:3006/22/2016 10: 45pm Alkaline Phosphatase 59 U/L 38-126 06/22/2016 10:30pm 06/22/2016 10: 45pm Total Protein 7.2 G/DL 6.3-8.2 06/22/2016 10:30pm 06/22/2016 10:45pm Albumin 4.4 G/DL 3.5-5.0 06/22/2016 10:30pm 06/22/2016 10:45pm Globulin 2.8 G/DL 2.4-3.6 06/22/2016 10:30pm 06/22/2016 10:45pm Albumin/Globulin Ratio 1.6 RATIO 1.1-2.2 06/22/2016 10:30pm 06/22/2016 10:45pm Aspartate Amino Transf (AST/SGOT) 22 U/L 17-59 06/22/2016 10:30pm 06/22 10:45pm Alanine Aminotransferase (ALT/SGPT) 26 U/L 21-72 06/22/2016 10:30pm 10:45pm Troponin I < 0.012 ng/ml 0-0.12 06/22/2016 10:30pm 06/22/2016 10:56pm Troponin values with a difference of 55% increase from orginal troponin value represent a true biological DELTA value. (%increase Calc=Orginal Troponin value, divided by subsequent Troponin value, multiplied by 100) Urine Collection Type VOIDED-NOT CC-MIDSTR 06/22/2016 11:39pm 06/22 11:53pm Urine Color YELLOW YELLOW 06/22/2016 11:39pm 06/22/2016 11:53pm Urine Turbidity CLEAR CLEAR 06/22/2016 11:39pm 06/22/2016 11:53pm Urine Specific [place] <=1.005 L 1.015-1.025 06/22/2016 11:39pm 2016 11:53pm Urine pH 5.5 5.0-8.0 06/22/2016 11:39pm 06/22/2016 11:53pm Urine Leukocyte Esterase NEGATIVE NEGATIVE 06/22/2016 11:39pm 2016 11:53pm Urine Nitrite NEGATIVE NEGATIVE 06/22/2016 11:39pm 06/22/2016 11: 53pm Urine Protein NEGATIVE NEGATIVE 06/22/2016 11:39pm 06/22/2016 11: 53pm Urine Glucose (UA) NEGATIVE NEGATIVE 06/22/2016 11:39pm 06/22/2016 11 :53pm Urine Ketones NEGATIVE NEGATIVE 06/22/2016 11:39pm 06/22/2016 11: 53pm Urine Urobilinogen 0.2 EU/DL NORMAL 06/22/2016 11:39pm 06/22/2016 11: 53pm Urine Bilirubin NEGATIVE NEGATIVE 06/22/2016 11:39pm 06/22/2016 11: 53pm Urine Blood NEGATIVE NEGATIVE 06/22/2016 11:39pm 06/22/2016 11:53pm Urinalysis Comment MICROSCOPIC NOT IND. 06/22/2016 11:39pm 2016 11:53pm Procedures Procedure Status Date Provider(s) Chest x-ray 2vw frontal&latl Completed 06/22/16 Comprehen metabolic panel Completed 06/22/16 Drug test prsmv instrmnt Completed 06/22/16 Urinalysis auto w/o scope Completed 06/22/16 Assay of troponin quant Completed 06/22/16 Complete cbc w/auto diff wbc Completed 06/22/16 Fibrin degradation quant Completed 06/22/16 Electrocardiogram tracing Completed 06/22/16 Hydrate iv infusion add-on Completed 06/22/16 Ther/proph/diag inj iv push Completed 06/22/16 Emergency dept visit Completed 06/22/16 [id number]"INJECTION, KETOROLAC TROMETHAMINE, PER 15 MG" Completed 06/22/16 [id number]"INFUSION, NORMAL SALINE SOLUTION , 1000 CC" Completed 06/22/16 PREDNISONE, 10 MG TAB Completed 06/22/16 Emergency dept visit Completed 06/27/16 Encounters Encounter Location Arrival/Admit Date Discharge/Depart Date Attending Provider Registered Emergency Room [facility] 09/08/16 2:32pm AYESHA CHRISTINASEN DO Departed Emergency Room [facility] 06/27/16 6:27pm 06/27/16 7: 14pm ADALGISA FUNK MD Departed Emergency Room [facility] 06/22/16 9:49pm 06/23/16 12: 55am MAHIN RICHARD MD Recent Diagnosis
[2016-09-13 13:48] VITALS: Ht 185.4 cm; Wt 65.5 kg
[2016-09-13] MEDS ORDERED: HYDR-3989 PO (13:57)
--- NOTE | 2016-09-13 14:00 | ERPDOC ---
Departure Disposition Decision Date: September 13, 2016 Disposition Decision Time: 16:14 Disposition: 01 DISCHARGED HOME, SELF-CARE Impression Impression Impression: Primary Impression: Nausea & vomiting Vomiting type: unspecified Vomiting Intractability: non-intractable Qualified Codes: R11.2 - Nausea with vomiting, unspecified Additional Impression: Epigastric pain Condition: Improved Seen By: Mid-level only Referrals: YANETH JUAREZ DO (Family) Patient Instructions: Acute Nausea and Vomiting (ED), Gastroenteritis (ED) Problems/Meds/Labs Reviewed?: Yes Medications reviewed and manag: Yes Additional Instructions: You may dissolve one Zofran 4 mg tab on tongue every 4-6 hours as needed for nausea and vomiting. Drink 8-12 glasses of water daily to stay hydrated. Clear liquids tonight however you may eat crackers and toast as tolerated. Follow treatment plan. If your symptoms are not improving over the next 48 hours follow with your PCP. Follow up care ordered?: Yes Mental Status: Alert, Oriented Scripts Ondansetron (Zofran Odt) 4 Mg Tab.rapdis 4 MG PO Q4-6HPRN, #20 TAB Oral Disintegrating Tablet Prov: MIRIAM ENGEL [employer] 09/13/16 HPI - Abdominal Pain General Chief Complaint: Nausea,Vomiting,Diarrhea Stated Complaint: VOMITING/UNABLE TO KEEP ANYTHING DOWN Time Seen by Provider: 13:52 Source: patient HPI - Abdominal Pain Initial Comments 40-year-old male presents to ER with complaint of nausea and vomiting pain since 10 AM this morning. Patient states he is unable to keep anything down. Patient also reports since he started having nausea and vomiting that has some epigastric burning. Patient denies fevers, chills, cough, shortness of breath, chest pain, diarrhea. Pain Scale: Now: 7/10 Allergies: Coded Allergies: Penicillins (Verified Allergy, Mild, HIVES, 09/13/16) Uncoded Allergies: TESTOSTERONE CREAM (Allergy, Mild, 05/16/08) Past History Past Medical History Metabolic: DENIES: diabetes ENMT: dental problems Cardiac: DENIES: angina Respiratory: asthma GI: DENIES: ulcers Male: DENIES: renal insufficiency Neurological: headaches, migraines Musculoskeletal: DENIES: rheumatoid arthritis Psychological: anxiety, bipolar Surgical History General: other Reproductive/: other Family History Family PMH: FOUND: MA, diabetes, hypertension Vaccines Hx Influenza Vaccination: No Hx Pneumococcal Vaccination: No Hx Tetanus, Diptheria, Pertuss: Yes (2011) Social History Substance Use Type: does not use Alcohol Intake: none Review of Systems Constitutional Constitutional: DENIES: chills, dizziness, fever, weakness Eyes General: DENIES: erythema, exudate Lids/Accessories: DENIES: erythema, swelling ENMT Ears: DENIES: pain Hearing: DENIES: hearing loss Sinuses: DENIES: congestion, rhinorrhea Mouth/Throat: DENIES: sore throat Cardiovascular Cardiac: DENIES: chest pain, murmur Rhythm/Rate: DENIES: palpitations Pulmonary Respiratory: DENIES: cough, dyspnea GI Upper Abdomen: nausea, pain, see HPI, vomiting, DENIES: hematemesis Lower Abdomen: DENIES: blood in stool, diarrhea, pain General: DENIES: dysuria, pain Musculoskeletal General: DENIES: joint pain, pain, tenderness Integumentary Skin: DENIES: color change, itching, rash Neurological General: DENIES: ataxia, change in strength, numbness, paralysis/paresis, weakness Psychiatric Psychiatric: DENIES: anxiety, depression, nervousness Physical Exam General General Nourishment: well nourished, well developed, adult General Body Habitus: disheveled Vitals and Pain First Documented Vital Signs Date Time Temp Pulse Resp B/P Pulse Ox O2 Delivery O2 Flow Rate FiO2 09/13/16 13:48 98.0 61 16 125/77 99 Room Air Weight: Kilograms: 65.500 Height (feet): 6 Height (inches): 1.00 Triage Pain Scale: Eyes (brief) Eyes Brief: found: EOMI, not found: PERRL ENMT (brief) ENMT Brief: FOUND: mucosa moist, NOT FOUND: nasal exudate, nasal swelling, pharnyx erythema Neck (brief) Neck: FOUND: trachea midline, NOT FOUND: adenopathy, tenderness, thyromegaly Respiratory (brief) Respiratory: FOUND: clear all tillman, equal bilaterally, symmetrical Cardiovascular (brief) Cardiac: FOUND: regular rate, regular rhythm Abdomen Inspection: NOT FOUND: distention Palpation: FOUND: soft, tender (mild TTP epigastric area), NOT FOUND: hepatomegaly, involuntary guarding, rebound, splenomegaly, voluntary guarding Auscultation: FOUND: normoactive (x4) Musculoskeletal (brief) Musculoskeletal Brief: NOT FOUND: deformity, loss of motion Integumentary (brief) Integumentary Brief: FOUND: dry, pink, warm Neurologic (brief) Neurological Brief: FOUND: motor-no gross deficits, sensory-no gross deficits Psychiatric (brief) Psychiatric Brief: FOUND: alert, normal affect, oriented Differential Diagnoses Considering: Food Poisoning, Gastroenteritis, Gastroparesis, Hypokalemia, Pancreatitis, UTI, Viral Syndrome Progress Results/Orders Orders Procedure Category Date Status Time Ondansetron Odt PHA 09/13/16 Complete (Zofran Odt) 14:15 Cbc W/Auto LAB 09/13/16 Complete Diff-Reflex Manual 14:08 Cmp - Comprehensive LAB 09/13/16 Complete Metabolic 14:08 Lipase LAB 09/13/16 Complete 14:08 Ua, Dip Wreflex LAB 09/13/16 Complete Microsc & Drafter Civil 14:08 Lab Results Laboratory Tests Test 09/13/16 14:49 White Blood Count 5.5T/MM3 Red Blood Count 4.96M/MM3 Hemoglobin 14.2GM/DL Hematocrit 39.6% Mean Corpuscular Volume 79.8UM3 Mean Corpuscular Hemoglobin 28.6UUG Mean Corpuscular Hemoglobin Concent 35.9GM/DL RDW Standard Deviation 37.5FL Platelet Count 138T/MM3 Mean Platelet Volume 9.9UM3 Immature Granulocyte % (Auto) 0.2% Neutrophils (%) (Auto) 65.3% Lymphocytes (%) (Auto) 27.1% Monocytes (%) (Auto) 6.7% Eosinophils (%) (Auto) 0.5% Basophils (%) (Auto) 0.2% Absolute Immature Granulocyte (auto 0.01T/MM3 Absolute Neutrophils (auto) 3.6T/MM3 Absolute Lymphocytes (auto) 1.5T/MM3 Absolute Monocytes (auto) 0.4T/MM3 Absolute Eosinophils (auto) 0.0T/MM3 Absolute Basophils (auto) 0.0T/MM3 Urine Collection Type Cleancatch-midstream Urine Color Yellow Urine Turbidity Clear Urine pH 5.5 Urine Specific [place] <=1.005 Urine Protein Negative Urine Glucose (UA) Negative Urine Ketones Negative Urine Blood Negative Urine Nitrite Negative Urine Bilirubin Negative Urine Urobilinogen 0.2EU/DL Urine Leukocyte Esterase Negative Urinalysis Comment Microscopic not ind. Turbidity < 20 Sodium Level 144MEQ/L Potassium Level 4.3MEQ/L Chloride Level 106MEQ/L Carbon Dioxide Level 26MEQ/L Anion Gap 12MEQ/L Blood Urea Nitrogen 14.0MG/DL Creatinine 1.0MG/DL Glomerular Filtration Rate Calc 83 BUN/Creatinine Ratio 14RATIO Glucose Level 93MG/DL Calculated Osmolality 278MOSM/KG Calcium Level 9.5MG/DL Total Bilirubin 0.70MG/DL Icterus Index < 2 Aspartate Amino Transf (AST/SGOT) 41U/L Alanine Aminotransferase (ALT/SGPT) 74U/L Alkaline Phosphatase 67U/L Total Protein 7.2G/DL Albumin 4.6G/DL Globulin 2.6G/DL Albumin/Globulin Ratio 1.8RATIO Lipase 66U/L Chemistry Specimen Hemolysis < 15 Medications Current ED Medications Ondansetron HCl (Zofran Odt) 4 mg O ONCE PO Last administered on 09/13/16t 14: 12; Start 09/13/16 at 14:15; Stop 09/13/16 at 14:16; Status DC MIRIAM ENGEL APRN September 13, 2016 14:00
[2016-09-13] MEDS ORDERED: ONDANSETRON ODT 4 MG TAB PO ONE (14:15)
--- OUTSIDE RECORDS SUMMARY | 2016-09-13 14:20 | XMS REPORT | Continuity of Care Document ---
Author Author [facility] Organization [facility] Address Unknown Phone Unavailable Support Name Relationship Address Phone HENRY BLACK MD Caregiver [address] [place] [phone] GENOVEVA RUVALCABA MD Caregiver [address] [place], [place] [phone] ZAK VARMA Next Of Kin [address] [id number] Insurance Providers Payer Name Policy Number Subscriber Name Relationship Medicare [id number] Eddie De Los Santos 18 Self Problems [...] F (96.8 - 99.1) Temperature (Calculated Celsius) 36.70557 degrees C (36.0 - 37.3) Pulse Rate [...] Has specimen been collected/obtained? Y Urine Specific [place] May 16, 2008 3:07pm 1.020 - Has [...] % N 0.0-0.5 Ordering r/o VTE Yes RK-Mxg-U-Type Natriuretic Peptide October 20, 2012 3:00am 108 PG/ML N 0- 175 Rule in cut points: <50 years old=450; 50-75 years old=900; >75 years old=1800; When utilizing ProBNP rule-in cut points, adjustment for impaired renal function is typically not required. Group A Streptococcus Culture Throat February 26, 2011 10:25am Procedures No known history of procedures. Encounters Encounter Location Date/Time Departed Emergency Room [facility] 01/22/14 3:11am Departed Emergency Room [facility] 01/11/14 3:57am Recent Diagnosis
--- OUTSIDE RECORDS SUMMARY | 2016-09-13 14:20 | XMS REPORT | Continuity of Care Document ---
Author Author [facility] Organization [facility] Address Unknown Phone Unavailable Support Name Relationship Address Phone GENOVEVA RUVALCABA MD Caregiver [address] [place] [phone] SARAH LONGORIA MD Caregiver [address] [place] [place] [address] ZAK VARMA Next Of Kin [address] [place] [address] Insurance Providers Payer Name Policy [...] F (96.8 - 99.1) Temperature (Calculated Celsius) 36.93381 degrees C (36.0 - 37.3) Pulse Rate [...] Has specimen been collected/obtained? Y Urine Specific [place] May 16, 2008 3:07pm 1.020 - Has [...] % N 0.0-0.5 Ordering r/o VTE Yes [id number]-Wqg-B-Type Natriuretic Peptide October 20, 2012 3:00am 108 PG/ML N 0- 175 Rule in cut points: <50 years old=450; 50-75 years old=900; >75 years old=1800; When utilizing ProBNP rule-in cut points, adjustment for impaired renal function is typically not required. Group A Streptococcus Culture Throat February 26, 2011 10:25am Procedures No known history of procedures. Encounters Encounter Location Date/Time Departed Emergency Room [facility] 01/11/14 3:57am Recent Diagnosis
--- OUTSIDE RECORDS SUMMARY | 2016-09-13 14:21 | XMS REPORT | Continuity of Care Document ---
Author Author [facility] Organization [facility] Address Unknown Phone Unavailable Allergies Active [...] PLATELET COUNT 147 k/cumm 150-400 METABOLIC PANEL, [facility] - 02/13/16 23:15 POTASSIUM 4.3 mmol/L 3.5-5.3 [...] Status Pt. Type Provider Facility Loc./Unit Complaint [id number] 05/28/2013 13:17:00 05/28/2013 23 :59:59 CLS Outpatient [id number] 03/25/2013 10:53:00 03/25/2013 23 :59:59 CLS Outpatient
[2016-09-13 14:57] LABS: BLOOD, URINE NEGATIVE (NEGATIVE); COLOR,URINE YELLOW (YELLOW); LEUKOCYTE ESTERASE ,URINE NEGATIVE (NEGATIVE); NITRITE,URINE NEGATIVE (NEGATIVE); UROBILINOGEN,URINE 0.2 EU/DL (NORMAL)
[2016-09-13 15:03] LABS: BASOPHILS % (AUTO) 0.2 % (0-2); EOSINOPHILS % (AUTO) 0.5 % (0-4); HCT - HEMATOCRIT 39.6 % (41-53); HGB - HEMOGLOBIN 14.2 GM/DL (13.5-17.5); IMMATURE GRANULOCYTE # (AUTO) 0.01 T/MM3 (0.00-0.03); IMMATURE GRANULOCYTE % (AUTO) 0.2 % (0.0-0.5); LYMPHOCYTES # (AUTO) 1.5 T/MM3 (1-4.8); LYMPHOCYTES % (AUTO) 27.1 % (23-45); MEAN CORPUSCULAR HGB 28.6 UUG (26-34); MEAN CORPUSCULAR HGB CONC(MCHC 35.9 GM/DL (31-37); MEAN CORPUSCULAR VOLUME 79.8 UM3 (80-100); MEAN PLATELET VOLUME 9.9 UM3 (9.4-12.4); MONOCYTES # (AUTO) 0.4 T/MM3 (0-0.8); MONOCYTES % (AUTO) 6.7 % (0-9.0); NEUTROPHILS #(AUTO)-ABSOLUTE 3.6 T/MM3 (1.8-7.7); NEUTROPHILS % (AUTO) 65.3 % (33-66); RED BLOOD COUNT 4.96 M/MM3 (4.50-5.90); WBC - WHITE BLOOD COUNT 5.5 T/MM3 (4.5-11.0)
[2016-09-13 15:07] LABS: ALBUMIN 4.6 G/DL (3.5-5.0); ALBUMIN/GLOBULIN RATIO 1.8 RATIO (1.1-2.2); ALKALINE PHOSPHATASE 67 U/L (38-126); ALT (SGPT) 74 U/L (21-72); ANION GAP 12 MEQ/L (5-15); AST (SGOT) 41 U/L (17-59); BUN/CREATININE RATIO 14 RATIO (6-26); CALCIUM 9.5 MG/DL (8.4-10.2); CHLORIDE 106 MEQ/L (98-107); CO2 - CARBON DIOXIDE 26 MEQ/L (22-30); GLOMERULAR FILTRATION RATE 83; GLUCOSE 93 MG/DL (75-110); LIPASE 66 U/L (23-300); POTASSIUM 4.3 MEQ/L (3.6-5); SODIUM 144 MEQ/L (134-144); TOTAL PROTEIN 7.2 G/DL (6.3-8.2)
[2016-09-13] MEDS ORDERED: ONDA4TAB7 PO (16:27)
[2016-09-13 16:35] VITALS: BP 114/68; PULSE 55; RESP 16; TEMP 98; O2SAT 98
--- NOTE | 2016-09-13 16:35 | NUR ---
DEPART PT GIVEN DI FOR GASTROENTERITIS, ACUTE N/V, ZOFRAN, F/U. RX PROVIDED FOR ZOFRAN. PT VERBALIZES UNDERSTANDING OF DI, MED, AND F/U. QUESTIONS ASKED/ANSWERED - DENIES FURTHER QUESTIONS/NEEDS AT THIS TIME. PERSONAL BELONGINGS GATHERED. PT ESCORTED/AMBULATED TO ED EXIT - GAIT STABLE, NO SIGN OF DISTRESS AT THIS TIME.
== END 2016-09-13 16:35 | disposition home or self-care (01) ==
LOC: ED 12:23
DX: R11.2 Nausea with vomiting, unspecified (principal); R10.13 Epigastric pain
CPT/HCPCS: 36415; 80053; 81003; 83690; 85025